=== PATIENT | male | born 1945 | race African-American/Black ===

== ENCOUNTER 2018-09-09 06:16 | Day surgery (SDC) | payer OTHER ==
[2018-09-07 18:02] VITALS: BMI 25.1
[2018-09-09] MEDS ORDERED: BACITRACIN 15 GM TUBE TOPICAL OINTMENT ONE (07:37)
--- NOTE | 2018-09-09 07:48 | HP ---
History & Physical Update - History History: No Change - Physical Physical: No Change - Assessment Assessment: No Change - Plan Plan: No Change
--- NOTE | 2018-09-09 07:50 | OP ---
Operative Note - Note: Operative Date: 09/09/18 Pre-Operative Diagnosis: prostate cancer Operation: prostate cryoablation and cystoscopy Post-Operative Diagnosis: Same as Pre-op Surgeon: Lv Ledesma Anesthesiologist/SUPERVISOR CHASSIS ASSEMBLY: Merlene Bains MD Anesthesia: General Estimated Blood Loss (mls): 0 Drains & Tubes with Location: 18 fr hagan Operative Report Dictated: Yes
[2018-09-09] MEDS ORDERED: MIDAZOLAM HCL 2 MG/2 ML SINGLE DOSE VIAL ONE (08:42)
[2018-09-09] MEDS ORDERED: PROPOFOL 20 ML ONE (08:46)
[2018-09-09] MEDS ORDERED: SUCCINYLCHOLINE CHLORIDE 200 MG/10 ML VIAL ONE (08:46)
[2018-09-09] MEDS ORDERED: ceFAZolin SODIUM 1 GM VIAL IVPB ONE (08:48)
[2018-09-09] MEDS ORDERED: ePHEDrine SULFATE 50 MG/1 ML AMPULE ONE (09:22)
[2018-09-09] MEDS ORDERED: oxyCODONE HCL 5 MG TABLET PO PRN (10:18)
[2018-09-09] MEDS ORDERED: ONDANSETRON 4 MG/2 ML VIAL IVPUSH PRN (10:18)
[2018-09-09] MEDS ORDERED: LACTATED RINGERS SOLUTION 1,000 ML IV SCH (10:30)
[2018-09-09] MEDS ORDERED: ACETAMINOPHEN 1000 MG/100 ML VIAL (NON FORMULARY) IVPB ONE (10:30)
[2018-09-09] MEDS ORDERED: ACETAMINOPHEN INJECTION 100 ML IVPB ONE (10:48)
--- NOTE | 2018-09-09 11:22 | OP ---
DATE OF OPERATION: 09/09/2018 PREOPERATIVE DIAGNOSIS: Prostate cancer. POSTOPERATIVE DIAGNOSIS: Prostate cancer. PROCEDURE: Prostate cryoablation and cystoscopy. SURGEON: Lv Ma MD STEWARDING SUPERVISOR: None. ANESTHESIA: General via laryngeal mask. ANESTHESIOLOGIST: Merlene Bains MD SPECIMENS: None. CULTURES: None. DRAINS: An 18-[place] Quintana catheter. ESTIMATED BLOOD LOSS: Negligible. COMPLICATIONS: None. DESCRIPTION OF PROCEDURE: The patient was brought into the operating room and placed on the operating room table in supine position. After administration of general anesthesia via laryngeal mask, intravenous antibiotics were administered. Sequential compression devices were placed. The patient was placed in the dorsal lithotomy position. The perineum was shaved first, and the perineum and genitals were prepped and draped in the usual sterile manner. An 18-[place] Quintana catheter was placed per urethra into the bladder. Then 10 mL was placed in the balloon, and the bladder was then filled with approximately 350 mL of normal sterile saline and clamped. Ioban drape was placed. The transrectal ultrasound probe and inserted into the rectum, and a transrectal ultrasound of the prostate was done, and plan was created for a hemiablation of the right side of the prostate. The 3 cryoprobes were now inserted in the appropriate location and confirmed under ultrasound guidance. The 2 temperature sensors were placed, one in Denonvilliers fascia, one in the external sphincter. Measurements were taken. The probes were set at the appropriate lengths. Now the indwelling Quintana catheter was removed. Flexible cystoscopy was done and demonstrated normal anterior urethra. Prostatic urethra demonstrated prostate was wide open status post TURP. There were no probes penetrating the prostate urethra. The bladder was thoroughly inspected. There were no foreign bodies, tumors, stones, or inflammation. Both ureteral orifices were in their usual location with clear efflux bilaterally. The scope was retroflexed, and no probed could be seen penetrating the bladder as well. Now a Super Stiff guidewire was passed through the cystoscope, and the cystoscope was removed. The urethra warmer was passed over the Super Stiff guidewire into the bladder. The guidewire was removed. Urethra warmer was left in place. Now, 2 freeze/thaw cycles were done, and excellent ablation was achieved. Once the procedure was completed, all temperature sensors and cryoablation probes were removed. Hemostasis was assured with manual pressure on the perineum. An 18-[place] Quintana catheter was replaced after leaving the urethral warmer for an additional 5 minutes. Sterile compressive dressing, bacitracin, 4 x 4, and Tegaderm. He tolerated the procedure well. Quintana catheter 18-[place]er was replaced draining clear. He tolerated the procedure well and was transferred to recovery in stable condition. LV MA M.D. [id number]
[2018-09-09] MEDS ORDERED: oxyCODONE HCL 5 MG TABLET ONE (11:54)
[2018-09-09 13:32] VITALS: BP 135/75; PULSE 50; TEMP 97.2
== END 2018-09-09 13:10 | disposition home or self-care (01) ==
LOC: JASU-SURG 06:16
PROVIDERS: ATTEND Urology
PROC: 0V503ZZ Destruction of Prostate, Percutaneous Approach (ICD-10-PCS; principal; 2018-09-09 08:00)
PROC: BV49ZZZ Ultrasonography of Prostate and Seminal Vesicles (ICD-10-PCS; 2018-09-09 08:00)
DX: C61 Malignant neoplasm of prostate (principal)
CPT/HCPCS: 55873; C2618; 82962; 94760; J0131

== ENCOUNTER 2018-09-16 08:33 | Emergency (ER) | payer OTHER ==
[2018-09-16 08:59] VITALS: TEMP 97.8; BMI 25.1
--- NOTE | 2018-09-16 09:10 | PDOC ---
Attending Attestation - Resident Resident Name: Charu Garcia - HPI HPI: 09/17/18 21:38 pt presents to the Ed complaining of urinary retention that started at 3 am. Denies fever, nausea or vomiting or other complaints. History of urinary retention post cystoscopy and ablation for BPH. Catheter removed on 09/15, patient was able to urinate until this morning. Quintana placed in the ED with immediate relief of patient's symptoms. 09/17/18 21:41 09/17/18 21:42 - Physicial Exam PE: 09/17/18 21:4 Agree with resident exam. Patient is alert and oriented x 3 and in no acute distress. CV: RR no murmurs. Lungs CTA b/l Abdomen is soft, non tender and non distended. No CVA tenderness. 09/17/18 21:42 - Medical Decision Making 09/17/18 21:44 Pt presents to the ED complaining of urinary retention. Quintana placed in the ED with 400 CC out and immediate relief of his symptoms. mildly elevated Cr, with unknown baseline. His urologist has been made aware of this. Will discharge home with leg bag and follow up with on Wednesday.
--- NOTE | 2018-09-16 09:11 | PDOC ---
History of Present Illness - General Chief Complaint: Urinary Problem Stated Complaint: SENT BY PCP Time Seen by Provider: 09/16/18 09:00 - History of Present Illness Initial Comments: 73yo M with PMH of HTN, BPH s/p ablation and cystoscopy on 09/09 presenting with urinary retention. Patient had his ablation on 09/09. His urinary catheter was removed in the office on the morning of 09/12. Patient had unable to urinate and returned to the office for catheter re-insertion. The catheter was again removed 09/15. He was given an antibiotic recently but does not know which one. Patient was able to urinate normally (last at 10pm) until he noticed he was unable to urinate, except for small amounts, at 3am this morning. Patient called his urologist and was instructed to come to the ED for catheterization, and likely follow-up on 09/19. Patient endorses dysuria and abdominal discomfort due to his retention. Denies fevers, chills, chest pain, or shortness of breath. Past History - Past Medical History Allergies/Adverse Reactions: Allergies Allergy/AdvReac Type Severity Reaction Status Date / Time No Known Allergies Allergy Verified 09/07/18 17:52 Home Medications: Ambulatory Orders Atenolol [Tenormin -] 25 mg PO DAILY 09/07/18 Enalapril Maleate 2.5 mg PO DAILY 09/07/18 Simvastatin 10 mg PO DAILY 09/07/18 Sitagliptin Phosphate [Januvia -] 100 mg PO DAILY@0700 09/07/18 Terazosin HCl [Hytrin] 1 mg PO DAILY 09/07/18 Oxycodone HCl/Acetaminophen [Percocet 5-325 mg Tablet] 1 - 2 tab PO Q4H PRN #42 tablet MDD 8 09/09/18 Sulfamethoxazole/Trimethoprim [Bactrim Ds Tablet] 1 each PO BID 7 Days #14 tablet 09/09/18 Cancer: Yes (prostate) COPD: No Diabetes: Yes HTN: Yes Hypercholesterolemia: Yes - Immunization History Immunization Up to Date: Yes - Suicide/Smoking/Psychosocial Hx Smoking History: Never smoked Have you smoked in the past 12 months: No If you are a former smoker, when did you quit?: >20 years Information on smoking cessation initiated: No Hx Alcohol Use: No Drug/Substance Use Hx: No Substance Use Type: None Hx Substance Use Treatment: No Review of Systems - Review of Systems Comments:: Constitutional: no fever, no chills HEENT: no throat pain, no dysphagia Cardiovascular: no chest pain, no palpitations Respiratory: no cough, no shortness of breath Gastrointestinal: +abdominal pain, no nausea Genitourinary: +dysuria, +retention Musculoskeletal: no myalgia, no arthralgia Skin: no rash, no itching Neurologic: no headache, no dizziness *Physical Exam - Vital Signs Last Vital Signs Temp Pulse Resp BP Pulse Ox 97.8 F 66 16 148/90 97 09/16/18 08:55 09/16/18 08:55 09/16/18 08:55 09/16/18 08:55 09/16/18 08:55 - Physical Exam Comments: General: Awake, alert, and fully oriented, in no acute distress Head: No signs of trauma Eyes: EOMI, sclera anicteric ENT: Moist mucus membranes Neck: Normal ROM, supple Lungs: Lungs clear, Normal breath sounds Cardio: Regular rhythm, S1 and S2 present Abdomen: Soft, nontender (exam was after hagan catheter was placed). No guarding , no rebound, no masses. No CVA tenderness b/l Extremities: Normal range of motion, Distal pulses present SKIN: Warm, Dry, normal turgor Neurologic: Cranial nerves II through XII grossly intact. Normal speech Moderate Sedation - Procedure Monitoring Vital Signs: Procedure Monitoring Vital Signs Temperature 97.8 F 09/16/18 08:55 Pulse Rate 66 09/16/18 08:55 Respiratory Rate 16 09/16/18 08:55 Blood Pressure 148/90 09/16/18 08:55 O2 Sat by Pulse Oximetry (%) 97 09/16/18 08:55 ED Treatment Course - LABORATORY CBC & Chemistry Diagram: 09/16/18 10:20 09/16/18 10:01 Medical Decision Making - Medical Decision Making 73yo M with PMH of HTN, BPH s/p ablation and cystoscopy on 09/09 presenting with urinary retention. DDX including but not limited retention due to obstruction, UTI, neurogenic bladder, pyelonephritis Hagan catheter placed with 425 cc output initially; nurse reports that a mucus plug was removed from the urethra during insertion 09/16/18 09:[address] Ledesma who is unavailable until this afternoon CMP ordered to evaluate patient's Creatinine, UA/UCX to assess for hematuria or infection 09/16/18 10:02 No anemia or leukocytosis UA with trace LE and 8 WBCs Cr=1.5 09/16/18 11:[address] Ledesma. He recommends discharging the patient who can follow-up on Wednesday. He believes the elevated Cr and abnormal UA are due to reaction from the recent urologic procedure. He does not recommend antibiotic regimen different from the one the patient is already on. *DC/Admit/Observation/Transfer Diagnosis at time of Disposition: Urinary retention - Discharge Dispostion Disposition: HOME Condition at time of disposition: Improved - Referrals Referrals: Lv Ledesma MD [Staff Physician] - - Patient Instructions Printed Discharge Instructions: DI for Urinary Retention in Men Additional Instructions: You came into the ED for urinary retention. We inserted a catheter which you can go home with. Follow up with your urologist on Wednesday. Your care is not complete until you do so. Call and make an appointment Immediate medical attention is required if you experience: you develop high fevers, chills, persistent vomiting, stop urinating, or any new or concerning symptoms.If you think you have an emergency, call for medical help right away. - Post Discharge Activity
[2018-09-16 10:36] LABS: BASO % 0.5 % (0-2.0); EOS % 1.1 % (0-4.5); HEMATOCRIT 44.7 % (35.4-49); HEMOGLOBIN 15.3 GM/dL (11.7-16.9); LYMPH % 13.8 % (8-40); MCH 28.3 pg (25.7-33.7); MCHC 34.2 g/dl (32.0-35.9); MEAN PLT VOLUME 8.5 fl (7.5-11.1); MONO % 17.4 % (3.8-10.2); NEUT % 67.2 % (42.8-82.8); PLATELET COUNT 187 K/MM3 (134-434); RBC 5.39 M/mm3 (4.00-5.60); RDW 14.2 % (11.9-15.9); WHITE BLOOD COUNT 3.7 K/mm3 (4.0-10.0)
[2018-09-16 10:51] LABS: URINE APPEARANCE CLEAR; URINE BILIRUBIN NEGATIVE (<2.0 mg/dL); URINE COLOR LTYELLOW; URINE GLUCOSE (UA) NEGATIVE (NEGATIVE); URINE KETONE NEGATIVE (NEGATIVE); URINE LEUK ESTERASE TRACE (NEGATIVE); URINE NITRITE NEGATIVE (NEGATIVE); URINE PROTEIN 2+ (NEGATIVE)
[2018-09-16 11:02] LABS: ALBUMIN 3.7 g/dl (3.4-5.0); ALK PHOS 82 U/L (45-117); ANION GAP 6 MMOL/L (8-16); BILIRUBIN,TOTAL 0.4 mg/dL (0.2-1); BLOOD UREA NITROGEN 17 mg/dL (7-18); CALCIUM 9.2 mg/dL (8.5-10.1); CHLORIDE 98 mmol/L (98-107); CO2 28 mmol/L (21-32); CREATININE 1.5 mg/dL (0.55-1.3); GLUCOSE,RANDOM 105 mg/dL (74-106); SGOT/AST 31 U/L (15-37); SGPT/ALT 38 U/L (13-61); SODIUM 132 mmol/L (136-145); TOT PROT 7.6 g/dl (6.4-8.2)
[2018-09-16 11:10] LABS: URINE MUCUS RARE
[2018-09-16] MEDS ORDERED: fentaNYL CITRATE/PF 1,000 MCG/20 ML AMPUL IVPUSH ONE (11:13)
[2018-09-16] MEDS ORDERED: PROPOFOL 200 MG/20 ML VIAL IVPUSH ONE ×3 (11:14→11:15)
[2018-09-16 12:38] VITALS: BP 112/73; PULSE 67
== END 2018-09-16 12:48 | disposition home or self-care (01) ==
LOC: JER 08:33
PROC: 0T9B70Z Drainage of Bladder with Drainage Device, Via Natural or Artificial Opening (ICD-10-PCS; principal; 2018-09-16)
DX: R33.9 Retention of urine, unspecified (principal)
CPT/HCPCS: 36415; 51702; 80053; 81003; 81015; 85025; 87086; 87186; 99283-25